=== PATIENT | female | born 1950 | race Caucasian/White ===

== ENCOUNTER 2019-08-17 13:32 | Outpatient (CLI) | payer OTHER | END 2019-08-17 13:35 | disposition home or self-care (01) | LOC: NUCLEAR 13:32 | DX: I20.0 Unstable angina (principal); I67.89 Other cerebrovascular disease ==

== ENCOUNTER 2019-08-24 11:02 | Outpatient (CLI) | payer OTHER | END 2019-08-24 11:18 | disposition home or self-care (01) | LOC: NUCLEAR 11:02 | DX: I70.213 Atherosclerosis of native arteries of extremities with intermittent claudication, bilateral legs (principal) ==

== ENCOUNTER 2020-01-19 09:20 | Outpatient (CLI) | payer OTHER | END 2020-01-19 10:00 | disposition home or self-care (01) | LOC: NUCLEAR 09:20 | DX: I10 Essential (primary) hypertension (principal) ==